=== PATIENT | female | born 1970 | race Caucasian/White ===

== ENCOUNTER 2019-07-25 17:29 | Inpatient (IN) | payer OTHER ==
[~2019-07-25] VITALS: Ht 172.7 cm; Wt 81.2 kg
[~2019-07-25 17:29] MED LIST: METF500; Norco 5-325 Ta1 EACH PO; OMEP20ER PO; PROM25 PO; Ultram50 MG PO
[2019-07-25 18:11] LABS: BASOPHILS ABSOLUTE AUTO 0.06 K/mm3 (0.00-0.23); BASOPHILS PERCENT AUTO 0 % (0-2); EOSINOPHILS ABSOLUTE AUTO 0.02 K/mm3 (0.00-0.68); EOSINOPHILS PERCENT AUTO 0 % (0-6); Hematocrit 44.2 % (33.0-51.0); Hemoglobin 14.4 g/dL (11.5-16.0); IMMATURE GRAN ABSOLUTE AUTO 0.17 K/mm3 (0.00-0.10); IMMATURE GRAN PERCENT AUTO 1 % (0-1); LYMPHOCYTES ABSOLUTE AUTO 2.49 K/mm3 (0.84-5.20); LYMPHOCYTES PERCENT AUTO 16 % (21-46); MONOCYTES ABSOLUTE AUTO 0.54 K/mm3 (0.16-1.47); MONOCYTES PERCENT AUTO 4 % (4-13); Mean Corpuscular HGB 30.3 pg (26.0-34.0); Mean Corpuscular HGB Conc 32.6 g/dL (31.5-36.5); Mean Corpuscular Volume 93 fL (80-100); Mean Platelet Volume 11.2 fL (9.1-12.4); NEUTROPHILS ABSOLUTE AUTO 12.12 K/mm3 (1.96-9.15); NEUTROPHILS PERCENT AUTO 79 % (41-73); Platelet Count 295 K/mm3 (150-400); RDW Coefficient Variation 12.6 % (11.7-14.2); RDW Standard Deviation 42.9 fL (35.1-46.3); Red Blood Cell Count 4.76 M/mm3 (3.80-5.20)
[2019-07-25 18:33] LABS: Alanine Aminotransfer (ALT/SGP 42 U/L (12-78); Albumin, Blood 3.9 g/dL (3.4-5.0); Albumin/Globulin Ratio 0.8 (0.8-1.8); Alk Phos 94 U/L (50-136); Anion Gap 6 mmol/L (6-16); Aspartate Aminotrans (AST/SGOT 45 U/L (12-37); Bilirubin, Total 0.4 mg/dL (0.1-1.0); Blood Urea Nitrogen 11 mg/dL (8-24); Bun/Creatinine Ratio 15.4 (12.0-20.0); CO2, Blood 28 mmol/L (21-32); Calcium, Blood 9.7 mg/dL (8.5-10.1); Chloride, Blood 104 mmol/L (98-108); Creatinine, Blood 0.71 mg/dL (0.40-1.00); Globulin, Blood 4.6 g/dL (2.2-4.0); Glomerular Filtration Rate >60 (60-); Glucose, Blood 174 mg/dL (70-99); Potassium, Blood 4.6 mmol/L (3.5-5.5); Sodium, Blood 138 mmol/L (136-145); Total Protein, Blood 8.5 g/dL (6.4-8.2)
[2019-07-25] MEDS ORDERED: ATORVASTATIN CA20 MG PO (19:52)
[2019-07-25] MEDS ORDERED: OMEPRAZOLE20 MG PO (19:52)
[2019-07-25] MEDS ORDERED: Vitamin B-121000 MCG PO (19:52)
[2019-07-25] MEDS ORDERED: Zovirax400 MG PO (19:53)
[2019-07-25] MEDS ORDERED: Ventolin/Prove6.7 GM INH (19:53)
[2019-07-25] MEDS ORDERED: VALS80 PO (19:53)
[2019-07-25] MEDS ORDERED: TRAZ50 PO (19:53)
[2019-07-25] MEDS ORDERED: ESCI20 PO (19:54)
--- NOTE | 2019-07-25 23:35 | NUR ---
PT ARRIVEED TO FLOOR WITH D5+1/2NS+20K INFUSING AT 100ML/HR WHEN SHE ARRIVED TO THE FLOOR. PER LABS POTASSIUM 4.6 AND DCFTHWE=[id number] SO CALLED ONCALL HOSPTALIST TO CLARIFY ORDERS. RECEIVED ORDERS PER EMAR. STOPPED D5 INFUSION AND STARTED 1 OF 2 BAGS NS AT 200ML/HR. CALLED PHARMACY TO RETIME THE 2ND BAG FOR MORNING.
[2019-07-26 03:59] LABS: Source, Urine Voided
[2019-07-26 04:01] LABS: Bilirubin, Urine Neg (Neg); Blood, Urine Neg (Neg); Glucose Qualitative, Urine Neg (Neg); Ketones, Urine Neg (Neg); Leukocyte Esterase, Urine Neg (Neg); Nitrite, Urine Neg (Neg); Protein, Urine 1+ (Neg); Specific Gravity, Urine 1.015 (1.003-1.022); Urobilinogen, Urine NORM (Normal); pH, Urine 6.5 (5.0-8.0)
[2019-07-26 04:03] LABS: Appearance, Urine Clear (Clear); Color, Urine Yellow (P-Yellow)
[2019-07-26 05:30] LABS: BASOPHILS ABSOLUTE AUTO 0.03 K/mm3 (0.00-0.23); BASOPHILS PERCENT AUTO 0 % (0-2); EOSINOPHILS ABSOLUTE AUTO 0.01 K/mm3 (0.00-0.68); EOSINOPHILS PERCENT AUTO 0 % (0-6); Hematocrit 35.1 % (33.0-51.0); Hemoglobin 11.2 g/dL (11.5-16.0); IMMATURE GRAN ABSOLUTE AUTO 0.03 K/mm3 (0.00-0.10); IMMATURE GRAN PERCENT AUTO 0 % (0-1); LYMPHOCYTES ABSOLUTE AUTO 2.28 K/mm3 (0.84-5.20); LYMPHOCYTES PERCENT AUTO 17 % (21-46); MONOCYTES ABSOLUTE AUTO 0.57 K/mm3 (0.16-1.47); MONOCYTES PERCENT AUTO 4 % (4-13); Mean Corpuscular HGB 30.7 pg (26.0-34.0); Mean Corpuscular HGB Conc 31.9 g/dL (31.5-36.5); Mean Platelet Volume 10.7 fL (9.1-12.4); NEUTROPHILS ABSOLUTE AUTO 10.34 K/mm3 (1.96-9.15); NEUTROPHILS PERCENT AUTO 78 % (41-73); Platelet Count 251 K/mm3 (150-400); RDW Coefficient Variation 12.7 % (11.7-14.2); RDW Standard Deviation 45.1 fL (35.1-46.3); Red Blood Cell Count 3.65 M/mm3 (3.80-5.20); White Blood Cell Count 13.26 K/mm3 (4.00-11.30)
[2019-07-26 05:31] LABS: Mean Corpuscular Volume 96 fL (80-100)
[2019-07-26] MEDS ORDERED: Acetaminophen650 M1 PO (16:12)
[2019-07-26] MEDS ORDERED: ONDA4ODT MM (16:13)
--- NOTE | 2019-07-26 16:33 | NUR ---
PATIENT DISCHARGED ON 07/26/19 AT 16:33
--- NOTE | 2019-07-27 00:52 | NUR ---
ACCESSED PT'S INFO TO SEE IF HOME MEDS LEFT IN DRAWER WERE THEIRS. THEY WERE NOT.
== END 2019-07-26 16:36 | disposition home or self-care (01) | DRG 390 ==
LOC: ER 17:29 → MEDS 17:30 → ER 21:01 → MEDS 21:09 → ENPENDDIS 07-26 16:09 → MEDS 07-26 16:36
PROVIDERS: Nurse Practitioner Acute Care; Physician Assistant; ADMIT Hospitalist
DX: K56.600 Partial intestinal obstruction, unspecified as to cause (principal); I10 Essential (primary) hypertension; E78.5 Hyperlipidemia, unspecified; J45.909 Unspecified asthma, uncomplicated; K21.9 Gastro-esophageal reflux disease without esophagitis; F41.9 Anxiety disorder, unspecified; Z88.5 Allergy status to narcotic agent; Z88.2 Allergy status to sulfonamides
CPT/HCPCS: 36415; 74176; 80053; 83690; 84703; 85025; 96361; 96374; 96375; 99285-25; A9270; J1630; J1650; J1885; J2405; J3010; J7030